=== PATIENT | male | born 1995 | race Caucasian/White ===

== ENCOUNTER 2019-05-26 18:07 | Emergency (ER) | payer OTHER ==
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
[2019-05-26] MEDS ORDERED: Succinylcholine 200 MG/10 ML MDV IV ONE (18:29)
[2019-05-26] MEDS ORDERED: Sodium Chloride 0.9% 1,000 ML IV SCH (18:30)
[2019-05-26] MEDS ORDERED: Sodium Chloride 0.9% 10 ML Syringe FLUSH ONE (19:14)
[2019-05-26] MEDS ORDERED: Sodium Chloride 0.9% 80 ML IV ONE (19:14)
[2019-05-26] MEDS ORDERED: Iopamidol 612 MG/ML 100 ML Bottle IV SCH (19:15)
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
--- NOTE | 2019-05-26 19:25 | CRLCR ---
INDICATION: Trauma. FINDINGS: Three views of the left wrist show a comminuted, displaced, and angulated fracture of the distal radius. Mildly displaced and angulated fracture of the distal ulna. Comminuted and mildly displaced fracture of the 1st metacarpal. No other evidence of acute fracture or dislocation. No other bony or soft tissue abnormalities identified. Dictated by Iftikhar Agrawal MD @ 05/26/2019 7:24:08 PM Dictated by: Iftikhar Agrawal MD @ 05/26/2019 19:24:29 (Electronically Signed)
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
== END 2019-05-26 19:20 | disposition other institution (70) ==
LOC: JP.ED 18:07
DX: S02.101A Fracture of base of skull, right side, initial encounter for closed fracture (principal); S06.4X0A Epidural hemorrhage without loss of consciousness, initial encounter; S02.113A Unspecified occipital condyle fracture, initial encounter for closed fracture; S52.502A Unspecified fracture of the lower end of left radius, initial encounter for closed fracture; S52.602A Unspecified fracture of lower end of left ulna, initial encounter for closed fracture; S62.202A Unspecified fracture of first metacarpal bone, left hand, initial encounter for closed fracture; S12.100A Unspecified displaced fracture of second cervical vertebra, initial encounter for closed fracture; S12.400A Unspecified displaced fracture of fifth cervical vertebra, initial encounter for closed fracture; S12.501A Unspecified nondisplaced fracture of sixth cervical vertebra, initial encounter for closed fracture; S12.600A Unspecified displaced fracture of seventh cervical vertebra, initial encounter for closed fracture; S41.111A Laceration without foreign body of right upper arm, initial encounter; S01.81XA Laceration without foreign body of other part of head, initial encounter; V86.59XA Driver of other special all-terrain or other off-road motor vehicle injured in nontraffic accident, initial encounter
CPT/HCPCS: 31500; 36415; 51702; 70450; 70486; 71045; 71260; 72125; 73110; 74177; 80053; 85025; 96360; 99284; G0480; J0330; J7030; 99291